=== PATIENT | female | born 1945 | race Two or more races ===

== ENCOUNTER 2020-02-12 12:43 | Inpatient (IN) | payer MEDICAID ==
[~2020-02-12] VITALS: Ht 152.4 cm; Wt 64.1 kg
[2020-02-12] MEDS ORDERED: NALOXONE HCL 0.4 MG/ML VIAL IV ONE (13:30)
[2020-02-12 14:01] LABS: Basophils # (auto) 0 10 ^3/uL (0-0.2); Basophils % (auto) 0.3 % (0.0-2.0); Eosinophils # (auto) 0 10 ^3/uL (0-0.8); Hematocrit 37.8 % (36.0-46.0); Hemoglobin 13.3 g/dL (12.2-16.2); Lymphocytes # (auto) 0.2 10 ^3/uL (0.4-5.4); Lymphocytes % (auto) 2.2 % (10.0-50.0); Mean Corpuscular Hemoglobin 30.9 pg (28.0-32.0); Mean Corpuscular Volume 88.1 fL (80.0-100.0); Monocytes # (auto) 0.3 10 ^3/uL (0-1.3); Monocytes % (auto) 2.9 % (0.0-12.0); Neutrophils # (auto) 10.7 10 ^3/uL (1.6-8.6); Neutrophils % (auto) 94.6 % (37.0-80.0); Platelet Count (auto) 74 10^3/uL (140-450); Red Cell Distribution Width 13.7 % (11.8-14.3); White Blood Cell 11.3 10^3/uL (4.4-10.8)
[2020-02-12] MEDS ORDERED: ACETAMINOPHEN 650 MG RECT SUPP PR ONE ×2 (14:04→14:15)
[2020-02-12 14:27] LABS: INR 1.13 (0.9-1.15); Partial Thromboplastin Time 28.5 sec (23.64-32.05)
[2020-02-12 14:32] LABS: Albumin 3.6 g/dL (3.4-5.0); Anion Gap 10 (5-15); Blood Alcohol < 3.0 mg/dL (0-5); Blood Urea Nitrogen 13 mg/dL (7-18); Calcium 8.2 mg/dL (8.5-10.1); Carbon Dioxide 22 mmol/L (21-32); Chloride 102 mmol/L (98-107); Glucose 258 mg/dL (74-106); Potassium 3.7 mmol/L (3.5-5.1); Sodium 134 mmol/L (136-145)
[2020-02-12 14:39] LABS: Alanine Aminotransferase 33 U/L (13-56); Alkaline Phosphatase 152 U/L (45-117); Aspartate Aminotransferase 37 U/L (15-37); BUN/Creatinine Ratio 16.7; Bilirubin, Total 1.2 mg/dL (0.2-1.0); GFR African American 92 mL/min; GFR Non-African American 76 mL/min; Total Protein 7.8 g/dL (6.4-8.2)
[2020-02-12] MEDS ORDERED: TETANUS IMMUNE GLOBULIN 250 UNIT/ML SYRG IM ONE (18:00)
[2020-02-12] MEDS ORDERED: HYDROcodone-ACET 5/325MG TAB PO PRN (18:00)
[2020-02-12] MEDS ORDERED: DEXTROSE (50%) 50ML SYRG IV PRN (18:00)
[2020-02-12] MEDS ORDERED: hydrALAZINE HCL 20 MG/ML VL IV PRN (18:00)
[2020-02-12] MEDS ORDERED: ALBUTEROL SULF 2.5 MG/0.5ML(0.5%) NEB SOLN NEB PRN (18:00)
[2020-02-12] MEDS ORDERED: MORPHINE SULF INJ 2 MG/ML SYRINGE 1ML IV PRN ×2 (18:00)
[2020-02-12] MEDS ORDERED: ONDANSETRON HCL 4 MG/2 ML VIAL IV PRN (18:00)
[2020-02-12] MEDS ORDERED: IPRATROPIUM BROM 0.5 MG/2.5ML INH SOL NEB PRN (18:00)
[2020-02-12] MEDS ORDERED: NITROGLYCERIN 0.4 MG SL TAB SL PRN (18:00)
[2020-02-12] MEDS: SODIUM CHLORIDE 0.9% 1,000 ML IV SCH (19:00)
[2020-02-12 21:29] VITALS: BP 147/79
[2020-02-12 22:00] VITALS: BP 114/52
[2020-02-12] MEDS: InsuLIN REG 1unit/0.01ml Soln (100units/ml) SC SCH (22:00)
[2020-02-12] MEDS: ACCU-CHEK COMFORT CURVE STRIP VI SCH (22:00)
[2020-02-12] MEDS ORDERED: METF-370 PO (22:20)
[2020-02-12] MEDS ORDERED: BENA20TA14 PO (22:20)
[2020-02-12] MEDS: CLINDAMYCIN 300MG IV 50 ML IV SCH (22:34)
[2020-02-13 05:00] VITALS: BP 104/68
[2020-02-13] MEDS: ACETAMINOPHEN 500 MG TAB PO PRN ×2 (05:07→21:41)
[2020-02-13] MEDS: CLINDAMYCIN 300MG IV 50 ML IV SCH ×3 (05:54→21:39)
[2020-02-13 06:05] LABS: Basophils # (auto) 0.1 10 ^3/uL (0-0.2); Basophils % (auto) 0.4 % (0.0-2.0); Eosinophils # (auto) 0 10 ^3/uL (0-0.8); Hematocrit 36.4 % (36.0-46.0); Hemoglobin 12.5 g/dL (12.2-16.2); Lymphocytes # (auto) 0.7 10 ^3/uL (0.4-5.4); Lymphocytes % (auto) 5.7 % (10.0-50.0); Mean Corpuscular Hemoglobin 30.5 pg (28.0-32.0); Mean Corpuscular Hgb Conc. 34.3 g/dL (32.0-36.0); Mean Corpuscular Volume 88.9 fL (80.0-100.0); Monocytes # (auto) 0.7 10 ^3/uL (0-1.3); Monocytes % (auto) 5.6 % (0.0-12.0); Neutrophils # (auto) 10.9 10 ^3/uL (1.6-8.6); Neutrophils % (auto) 88.3 % (37.0-80.0); Platelet Count (auto) 75 10^3/uL (140-450); Red Blood Cells 4.09 10^6/uL (4.0-5.20); Red Cell Distribution Width 13.7 % (11.8-14.3); White Blood Cell 12.4 10^3/uL (4.4-10.8)
[2020-02-13 06:14] LABS: INR 1.15 (0.9-1.15); Partial Thromboplastin Time 34.5 sec (23.64-32.05)
[2020-02-13 06:17] LABS: Calcium 8.3 mg/dL (8.5-10.1); Potassium 3.4 mmol/L (3.5-5.1)
[2020-02-13 06:20] LABS: BUN/Creatinine Ratio 24.7
[2020-02-13 06:23] LABS: Bilirubin, Total 1.3 mg/dL (0.2-1.0); Total Protein 7.1 g/dL (6.4-8.2)
[2020-02-13] MEDS: ACCU-CHEK COMFORT CURVE STRIP VI SCH ×4 (06:33→21:40)
[2020-02-13] MEDS: InsuLIN REG 1unit/0.01ml Soln (100units/ml) SC SCH ×4 (06:35→21:40)
[2020-02-13 08:50] VITALS: BP 104/45
[2020-02-13] MEDS: cefTRIAXone 1GM/50ML D5W 50 ML IV SCH (09:45)
[2020-02-13] MEDS: amLODIPine BESYLATE 5 MG TAB PO SCH (09:46)
[2020-02-13] MEDS ORDERED: FAMOTIDINE 20 MG TAB PO SCH (10:00)
[2020-02-13] MEDS ORDERED: PANTOPRAZOLE 40 MG TAB PO ONE (11:15)
[2020-02-13 11:25] LABS: Hepatitis A Ab IgM Negative; Hepatitis B Core IgM Negative; Hepatitis B Surface Antigen Negative (Negative)
[2020-02-13 11:26] LABS: Hepatitis C Antibody Negative (Negative)
[2020-02-13 12:33] VITALS: BP 122/52
[2020-02-13] MEDS ORDERED: POTASSIUM CHL 20 Meq TABLET PO ONE (13:30)
[2020-02-13 15:36] LABS: Urine Bacteria FEW /hpf (None Seen); Urine Blood Negative /uL (Negative); Urine Specific Gravity 1.014 (1.001-1.035); Urine WBC 1 /hpf (0 - 5)
[2020-02-13 15:49] LABS: Alcohol, Urine < 3.0 mg/dL (0-5); Amphetamine Screen, Urine NEGATIVE (NEGATIVE); Barbiturate Scree,Urine NEGATIVE (NEGATIVE); Benzodiazephine Screen, Urine NEGATIVE (NEGATIVE); Cannabinoid Screen, Urine NEGATIVE (NEGATIVE); Cocaine Screen, Urine NEGATIVE (NEGATIVE); Opiate Scree,Urine NEGATIVE (NEGATIVE); Phencyclidine Screen, Urine NEGATIVE (NEGATIVE)
[2020-02-13] MEDS: SODIUM CHLORIDE 0.9% 1,000 ML IV SCH (16:35)
[2020-02-13 16:50] VITALS: BP 122/48
[2020-02-13] MEDS: PANTOPRAZOLE 40 MG TAB PO SCH (21:40)
[2020-02-13 22:23] VITALS: BP 127/57
[2020-02-14] MEDS: SODIUM CHLORIDE 0.9% 1,000 ML IV SCH ×2 (03:20→20:00)
[2020-02-14 05:26] VITALS: BP 115/57
[2020-02-14] MEDS: CLINDAMYCIN 300MG IV 50 ML IV SCH ×3 (06:12→21:44)
[2020-02-14] MEDS: ACCU-CHEK COMFORT CURVE STRIP VI SCH ×4 (06:12→21:45)
[2020-02-14] MEDS: InsuLIN REG 1unit/0.01ml Soln (100units/ml) SC SCH ×4 (06:12→21:45)
[2020-02-14 07:16] LABS: Basophils # (auto) 0 10 ^3/uL (0-0.2); Basophils % (auto) 0.4 % (0.0-2.0); Eosinophils # (auto) 0.1 10 ^3/uL (0-0.8); Eosinophils % (auto) 0.8 % (0.0-7.0); Hematocrit 36.7 % (36.0-46.0); Hemoglobin 12.6 g/dL (12.2-16.2); Lymphocytes # (auto) 0.9 10 ^3/uL (0.4-5.4); Lymphocytes % (auto) 9.8 % (10.0-50.0); Mean Corpuscular Hemoglobin 30.8 pg (28.0-32.0); Mean Corpuscular Hgb Conc. 34.4 g/dL (32.0-36.0); Mean Corpuscular Volume 89.5 fL (80.0-100.0); Monocytes # (auto) 0.5 10 ^3/uL (0-1.3); Monocytes % (auto) 5.8 % (0.0-12.0); Neutrophils # (auto) 7.2 10 ^3/uL (1.6-8.6); Neutrophils % (auto) 83.2 % (37.0-80.0); Platelet Count (auto) 75 10^3/uL (140-450); Red Cell Distribution Width 13.8 % (11.8-14.3); White Blood Cell 8.7 10^3/uL (4.4-10.8)
[2020-02-14 07:28] LABS: Albumin 2.9 g/dL (3.4-5.0); Calcium 8.3 mg/dL (8.5-10.1); Magnesium 2.1 mg/dL (1.6-2.6); Potassium 3.5 mmol/L (3.5-5.1)
[2020-02-14 07:29] LABS: % Iron Saturation 8.1 % (15-50)
[2020-02-14 07:31] LABS: BUN/Creatinine Ratio 26.5; Bilirubin, Total 1.1 mg/dL (0.2-1.0); Total Protein 6.7 g/dL (6.4-8.2)
[2020-02-14 08:00] VITALS: BP 104/48
[2020-02-14 09:00] VITALS: BP 120/56
[2020-02-14] MEDS ORDERED: LIDOCAINE VISCOUS 2% 15ML UD ONE (09:34)
[2020-02-14] MEDS ORDERED: SODIUM CHLORIDE LOCK 10 ML ONE (09:34)
[2020-02-14] MEDS ORDERED: SIMETHICONE 40 MG/0.6 ML ORAL DROP ONE (09:34)
[2020-02-14] MEDS ORDERED: diphenhdrAMINE HCL 50 MG/1 ML VL ONE (09:35)
[2020-02-14] MEDS ORDERED: NALOXONE HCL 0.4 MG/ML VIAL ONE (09:36)
[2020-02-14] MEDS ORDERED: FLUMAZENIL 0.1 MG/ML INJ 10ML MDV IV ONE (09:36)
[2020-02-14] MEDS: MIDAZOLAM HCL 5 MG/ML-1ML VIAL ONE ×2 (09:56→09:59)
[2020-02-14] MEDS: fentaNYL CITRATE 100 MCG/2 ML VL ONE ×2 (09:56→09:59)
[2020-02-14] MEDS: amLODIPine BESYLATE 5 MG TAB PO SCH (10:00)
[2020-02-14] MEDS: cefTRIAXone 1GM/50ML D5W 50 ML IV SCH (10:53)
[2020-02-14] MEDS: PANTOPRAZOLE 40 MG TAB PO SCH ×2 (10:53→21:44)
[2020-02-14 13:00] VITALS: BP 106/54
[2020-02-14 17:00] VITALS: BP 117/62
[2020-02-14 22:00] VITALS: BP 129/61
[2020-02-15 05:00] VITALS: BP 110/57
[2020-02-15] MEDS: CLINDAMYCIN 300MG IV 50 ML IV SCH ×2 (06:43→13:50)
[2020-02-15] MEDS: InsuLIN REG 1unit/0.01ml Soln (100units/ml) SC SCH ×2 (06:44→11:39)
[2020-02-15] MEDS: ACCU-CHEK COMFORT CURVE STRIP VI SCH ×2 (06:44→11:38)
[2020-02-15 08:00] VITALS: BP 110/57
[2020-02-15 09:00] VITALS: BP 122/64
[2020-02-15] MEDS: PANTOPRAZOLE 40 MG TAB PO SCH (10:38)
[2020-02-15] MEDS: cefTRIAXone 1GM/50ML D5W 50 ML IV SCH (10:38)
[2020-02-15] MEDS ORDERED: PANT40TA2 PO (12:22)
[2020-02-15] MEDS ORDERED: CLIN300C8 PO (12:22)
[2020-02-15 13:00] VITALS: BP 128/75
== END 2020-02-15 15:30 | disposition home or self-care (01) | DRG 720 ==
LOC: ER 12:43 → EDBD 12:43 → TELE 12:44 → TELE-WESTW 19:38
PROVIDERS: ADMIT Nurse Practitioner Acute Care; ATTEND Internal Medicine
PROC: 0DB68ZX Excision of Stomach, Via Natural or Artificial Opening Endoscopic, Diagnostic (ICD-10-PCS; principal; 2020-02-14 09:53)
DX: A41.9 Sepsis, unspecified organism (principal); G93.41 Metabolic encephalopathy; E44.0 Moderate protein-calorie malnutrition; D69.59 Other secondary thrombocytopenia; K76.6 Portal hypertension; K83.8 Other specified diseases of biliary tract; L03.114 Cellulitis of left upper limb; E11.9 Type 2 diabetes mellitus without complications; I10 Essential (primary) hypertension; K74.60 Unspecified cirrhosis of liver; M43.17 Spondylolisthesis, lumbosacral region; S61.452A Open bite of left hand, initial encounter; K29.70 Gastritis, unspecified, without bleeding; M85.80 Other specified disorders of bone density and structure, unspecified site; Z68.27 Body mass index [BMI] 27.0-27.9, adult; Z79.84 Long term (current) use of oral hypoglycemic drugs; W53.21XA Bitten by squirrel, initial encounter; Y93.89 Activity, other specified; Y92.098 Other place in other non-institutional residence as the place of occurrence of the external cause; Y99.8 Other external cause status; Z87.442 Personal history of urinary calculi
CPT/HCPCS: 36415; 43239; 70450; 71045; 71250; 73130; 74176; 74181; 80053; 80074; 80307; 80320; 81001; 82105; 82140; 82962; 83036; 83540; 83550; 83605; 83735; 84484; 85025; 85610; 85730; 86038; 87040; 87086; 87804; 93005; 99291; G0378; J0696; J1815; J2250; J3490